=== PATIENT | male | born 1945 | race Caucasian/White ===

== ENCOUNTER 2023-09-17 05:50 | Emergency (ER) | payer MEDICARE, SELFPAY ==
[2023-09-17 05:54] VITALS: BP 152/78
[2023-09-17 06:31] VITALS: BMI 29.1
[2023-09-17 06:49] LABS: % Basophils 0.4 % (0-2); % Eosinophils 1.4 % (0-6); % Immature Granulocytes 0.2 % (0-0.5); % Lymphocytes 13.4 % (20.5-51.1); % Monocytes 8.1 % (1.7-9.3); % Neutrophils 76.5 % (42.2-75.2); Absolute Eosinophils 0.1 10^3/uL (0-0.7); Absolute Lymphocytes 1.3 10^3/uL (1.2-3.4); Absolute Monocytes 0.8 10^3/uL (0.1-0.6); Absolute Neutrophils 7.2 10^3/uL (1.4-6.5); Hemoglobin 13.6 g/dL (13.0-18.0); Mean Corp Hgb Conc. 35.8 g/dL (33.0-37.0); Mean Corpuscular Hgb 30.6 pg (27.0-31.0); Mean Corpuscular Volume 85.6 fL (80.0-94.0); Mean Platelet Volume 8.6 fL (7.4-10.4); Nucleated Red Blood Cells % 0 % (-); Platelet Count 237 10^3/uL (130-400); Red Blood Cell Count 4.44 10^6/uL (4.70-6.10); Red Cell Dist. Width 12.5 % (11.5-14.5); White Blood Cell Count 9.4 10^3/uL (4.8-10.8)
[2023-09-17 07:07] LABS: ALT (SGPT) 22 U/L (0-50); AST (SGOT) 26 U/L (17-59); Albumin 4.1 g/dl (3.5-5.0); Alkaline Phosphatase 98 U/L (38-126); Blood Urea Nitrogen 16 mg/dl (9-20); Calcium 9.4 mg/dl (8.4-10.2); Carbon Dioxide 23 mmol/L (22-30); Chloride 107 mmol/L (98-107); Estimated Creatinine Clearance 71 ml/min; Glucose 162 mg/dl (70-99); Lipase 123 U/L (23-300); Potassium 4.2 mmol/L (3.5-5.1); Sodium 138 mmol/L (135-145); Total Bilirubin 0.8 mg/dl (0.2-1.3); Total Protein 6.6 g/dl (6.3-8.2); eGFR > 60.00
[2023-09-17 07:09] VITALS: BP 120/65
--- NOTE | 2023-09-17 07:27 | ED.GENMED ---
History of Present Illness
General
Chief Complaint: Flank Pain
Source: patient
Exam Limitations: none
Time Seen by Provider: 09/17/23 07:18
Travel History
Have you had any contact with someone who has COVID-19?: No
Do you have any symptoms of coronavirus? Fever > 100 degrees, chills, cough, shortness of breath, sore throat, loss of taste or smell, muscle aches, or headache?: No
History of Present Illness
History of Present Illness:
78-year-old male with history [id number] diabetes and hypertension presents complaining of onset of flank pain that radiates to the testicle that woke him up from earlier this morning. He was nauseous. The pain is since subsided. He
does have a history of kidney stones. No prior abdominal surgical history. No fevers. No other complaints at this time
Past History
Past History
ED Past Medical History: Arrthythmia, Hypercholesterolemia, Other (LBBB) and Other (Recurrent left leg cellulitis, kidney stones)
ED Past Surgical History: Cardiac (defibrilator 2008, cath 2012-negative)
Social History
Tobacco: Non-smoker
Alcohol: Occasional
Personal:
Living: with family
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
Family History
Family History: Other (Noncontributory)
Phy Exam
Physical Exam
Physical Exam:
General: Well-appearing male no acute respiratory distress
HEENT: Normocephalic atraumatic neck is supple
Heart: Regular rate and rhythm no murmurs
Lungs: Clear to auscultation bilaterally no wheezing
Abdomen: Soft nontender nondistended no guarding rebound normal bowel sounds
Extremities: No cyanosis or edema
Course
Orders/Labs/Results
Orders:
Orders
09/17/23 06:24
IV Insert/Care/Rem.- Treatment PRN
09/17/23 06:31
Complete Blood Count/With Diff Urgent
Comprehensive Metabolic Panel Urgent
Lipase Urgent
09/17/23 07:25
CT Abd/pel Without Iv Or Oral Urgent
Comment:
Reason For Exam: left flank pain
09/17/23 08:10
Urinalysis Reflex To Culture Urgent
Date Specimen was Collected: 09/17/23
Time Specimen was Collected: 06:24
Urine Microscopic Reflex Cult Urgent
Abnormal Lab Results
09/17/23 09/17/23
06:31 08:10
RBC 4.44 L 10^6/uL
(4.70-6.10)
Hct 38.0 L %
(39.0-52.0)
Absolute Neuts (auto) 7.2 H 10^3/uL
(1.4-6.5)
Absolute Monos (auto) 0.8 H 10^3/uL
(0.1-0.6)
Neutrophils % 76.5 H %
(42.2-75.2)
Lymphocytes % 13.4 L %
(20.5-51.1)
Glucose 162 H mg/dl
(70-99)
Ur Occult Blood Reflex 4+ A
(Negative)
Urine RBC 26-30 A /HPF
(0-2)
Urine Bacteria (Reflex) Few A
(Negative)
09/17/23 06:31
09/17/23 06:31
Vital Signs
Initial and Last Documented VS:
Initial Vital Signs
Temp Pulse Resp BP Pulse Ox
97.4 F 82 22 152/78 99
09/17/23 05:54 09/17/23 05:54 09/17/23 05:54 09/17/23 05:54 09/17/23 05:54
Last Documented Vital Signs
Temp Pulse Resp BP Pulse Ox
97.4 F 81 16 138/66 96
09/17/23 05:54 09/17/23 08:12 09/17/23 08:12 09/17/23 09:00 09/17/23 09:00
MDM/Problems Addressed
Differential Diagnosis Includes:
Left flank pain. Somali could include renal colic versus diverticulitis versus musculoskeletal flank pain. Very unlikely to be dissection.
Urinalysis pending labs pending. Will check CT of the abdomen.
*Critical Care Note
Total Time (30-74mins, 75-104mins- exclusive of procedures): Not Applicable
Update Note
Update Note:
CT shows evidence of a recently passed kidney stone on the left. Patient reexamined and states his pain is gone appearing comfortable with stable vital signs. No evidence of infection in the urine. I believe he did recently passed a stone no
indication for any further intervention at this point. Stable for the
ED Attending Note
-
Portions of this chart may have been created with voice recognition software.� Occasional wrong word or��sound alike� substitutions may have occurred due to the inherent limitations of voice recognition software.
Discharge Plan
Departure
Patient Disposition: Home (Routine Discharge)
Date of Disposition: 09/17/23
Time of Disposition: 09:23
Patient with high blood pressure during this ER visit?: No
Discharge Problem:
Kidney stone
Instructions: Kidney Stones (DC)
Prescriptions:
No Action
atorvastatin 40 MG tablet
40 mg PO QPM
carvedilol 12.5 MG tablet
12.5 mg PO BID
lisinopril 10 MG tablet
10 mg PO DAILY Qty: 30 0RF
metformin 500 mg Tablet
500 mg PO DAILY
Referrals:
Richard Joseph DO [Family Provider] -
Activity Restrictions/Additional Instructions:
Continue drinking plenty of fluids. You may use ibuprofen if needed for residual pain however looks like you recently passed the stone. Please return here if needed otherwise
Interventions
Interventions:
*Risk Screen - Suicide Last Done: 09/17/23 05:54
*General Assessment Last Done: 09/17/23 06:31
*Neglect/Abuse Screening Last Done: 09/17/23 05:54
ED- Fall Risk Assessment Last Done: 09/17/23 06:31
*ED COVID-19 Vaccine History Last Done: 09/17/23 06:31
FS-Mdbttf-Agnajwyrvx Assessment Last Done: 09/17/23 07:10
ED-Male Genitourinary Assessment Last Done: 09/17/23 07:10
[2023-09-17 08:12] VITALS: BP 134/54
[2023-09-17 08:29] LABS: Urine Albumin Trace (Neg - Trace); Urine Bilirubin Negative (Negative); Urine Character Clear (Clear); Urine Color Yellow; Urine Glucose Negative (Negative); Urine Ketone Negative (Negative); Urine Leukocyte Negative (Negative); Urine Nitrite Negative (Negative); Urine Occult Blood 4+ (Negative); Urine Specific Gravity 1.015 (<1.030); Urine Urobilinogen Negative (Neg - 1+)
[2023-09-17 08:44] LABS: Urine Bacteria Few (Negative); Urine Red Blood Cell 26-30 /HPF (0-2); Urine White Cell 0-2 /HPF (0-5)
[2023-09-17 09:00] VITALS: BP 138/66
== END 2023-09-17 09:30 | disposition home or self-care (01) ==
LOC: EMR 05:50
PROVIDERS: EMERGENCY PHYSICIAN Emergency Medicine; FAMILY PHYSICIAN Family Medicine
DX: N20.0 Calculus of kidney (principal); Z87.442 Personal history of urinary calculi; E78.00 Pure hypercholesterolemia, unspecified; I44.7 Left bundle-branch block, unspecified; E11.9 Type 2 diabetes mellitus without complications; I10 Essential (primary) hypertension; Z79.84 Long term (current) use of oral hypoglycemic drugs
CPT/HCPCS: 99284; 74176; 80053; 81003; 81015; 83690; 85025

== ENCOUNTER → 2024-01-17 11:22 | Outpatient (REF) | payer MEDICARE, SELFPAY | LOC: HWRAD 11:22 | PROVIDERS: ATTENDING PHYSICIAN Urology; FAMILY PHYSICIAN Family Medicine | DX: N20.0 Calculus of kidney (principal) | CPT/HCPCS: 76775 ==

== ENCOUNTER 2024-06-30 08:35 | Emergency (ER) | payer MEDICARE, SELFPAY ==
[2024-06-30 08:47] VITALS: BP 162/80
--- NOTE | 2024-06-30 08:52 | ED.GENMED ---
ED Provider Triage
<Rachell Salcedo PA-C - Last Filed: 06/30/24 08:55>
-
Patient seen by provider in Triage?: Seen in Triage
Attestation: A medical screening examination has been initiated by a qualified medical provider. Based on the assessment performed at this time, it has been determined that an emergent medical condition may exist and the patient has been informed
that further medical evaluation and possible additional diagnostic testing may be needed.
HPI: 78yoM here with R flank pain that woke him up at 4am. +Nausea. Urinated a small amount this morning. Hx of kidney stones and this feels the same.
GENERAL: Alert , in no apparent distress
EYE: No visual abnormalities.
NECK: Trachea midline
ENT: No visible abnormalities.
LUNGS: No acute respiratory distress
NEUROLOGICAL: Alert and oriented
SKIN: Skin intact. No visible changes.
MUSCULOSKELETAL: Moving extremities normally
PSYCH: Normal and appropriate interaction.
This is a medical evaluation conducted in person to initiate diagnostic evaluation and provide initial therapeutics. Please see further documentation by the treating clinician.
CBC, CMP, UA, and CT abdomen without contrast ordered. Percocet and Zofran ordered for symptoms.
History of Present Illness
<Rachell Salcedo PA-C - Last Filed: 06/30/24 08:55>
General
Chief Complaint: Flank Pain
Time Seen by Provider: 06/30/24 10:36
<Zach Sidhu PA-C - Last Filed: 06/30/24 10:56>
General
Source: patient
History of Present Illness
History of Present Illness:
Triage note reviewed. 78-year-old male sudden onset right flank pain with nausea at 4 AM this morning. History of kidney stones. He had 1 episode of vomiting. No fevers. He is followed by urology. He is never needed a procedure for his kidney
stones. He was given Zofran and Percocet while in the waiting room and his pain is improved
Past History
<Rachell Salcedo PA-C - Last Filed: 06/30/24 08:55>
Past History
ED Past Medical History: Arrthythmia, Hypercholesterolemia, Other (LBBB) and Other (Recurrent left leg cellulitis, kidney stones)
ED Past Surgical History: Cardiac (defibrilator 2008, cath 2012-negative)
Social History
Tobacco: Non-smoker
Alcohol: Occasional
Personal:
Living: with family
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
Family History
Family History: Other (Noncontributory)
Phy Exam
<Zach Sidhu PA-C - Last Filed: 06/30/24 10:56>
Physical Exam
Physical Exam:
General: Well-appearing male no acute respiratory distress
HEENT: Normocephalic atraumatic
Heart: Regular rate and rhythm no murmurs
Lungs: Clear no wheeze
Musculoskeletal exam: Spine is nontender
Abdomen soft no significant CVA tenderness
Course
<Rachell Salcedo PA-C - Last Filed: 06/30/24 08:55>
Orders/Labs/Results
Orders:
Orders
06/30/24 08:52
Oxycodone/Acetaminophen [Percocet 5/325] 1 tablet PO NOW STA
06/30/24 08:53
CT Abd/pel Without Iv Or Oral Urgent
Comment:
Reason For Exam: R flank pain
Ondansetron Orally Disint [Zofran Odt (Orally Disintegrating)] 4 mg .ROUTE .STK-MED ONE
06/30/24 08:54
Ondansetron Orally Disint [Zofran Odt (Orally Disintegrating)] 4 mg PO NOW STA
06/30/24 09:02
Complete Blood Count/With Diff Urgent
Comprehensive Metabolic Panel Urgent
Urinalysis Reflex To Culture Urgent
Date Specimen was Collected: 06/30/24
Time Specimen was Collected: 08:56
Urine Microscopic Reflex Cult Urgent
06/30/24 10:49
Ketorolac [Toradol] 30 mg IM NOW STA
Abnormal Lab Results
06/30/24
09:02
WBC 12.6 H 10^3/uL
(4.8-10.8)
MCH 31.1 H pg
(27.0-31.0)
Abs Immat Gran (auto) 0.1 H 10^3/uL
(0-0.05)
Absolute Neuts (auto) 9.9 H 10^3/uL
(1.4-6.5)
Absolute Monos (auto) 1.2 H 10^3/uL
(0.1-0.6)
Neutrophils % 78.2 H %
(42.2-75.2)
Lymphocytes % 10.2 L %
(20.5-51.1)
BUN 22 H mg/dl
(9-20)
Glucose 158 H mg/dl
(70-99)
Calcium 10.4 H mg/dl
(8.4-10.2)
Ur Occult Blood Reflex 4+ A
(Negative)
Urine RBC 26-30 A /HPF
(0-2)
Urine Bacteria (Reflex) Few A
(Negative)
06/30/24 09:02
06/30/24 09:02
Vital Signs
Initial and Last Documented VS:
Initial Vital Signs
Temp Pulse Resp BP Pulse Ox
98.1 F 77 16 162/80 99
06/30/24 08:47 06/30/24 08:47 06/30/24 08:47 06/30/24 08:47 06/30/24 08:47
Last Documented Vital Signs
Temp Pulse Resp BP Pulse Ox
98.1 F 77 16 162/80 99
06/30/24 08:47 06/30/24 08:47 06/30/24 08:47 06/30/24 08:47 06/30/24 08:47
<Zach Sidhu PA-C - Last Filed: 06/30/24 10:56>
Orders/Labs/Results
Orders:
Orders
06/30/24 08:52
Oxycodone/Acetaminophen [Percocet 5/325] 1 tablet PO NOW STA
06/30/24 08:53
CT Abd/pel Without Iv Or Oral Urgent
Comment:
Reason For Exam: R flank pain
Ondansetron Orally Disint [Zofran Odt (Orally Disintegrating)] 4 mg .ROUTE .STK-MED ONE
06/30/24 08:54
Ondansetron Orally Disint [Zofran Odt (Orally Disintegrating)] 4 mg PO NOW STA
06/30/24 09:02
Complete Blood Count/With Diff Urgent
Comprehensive Metabolic Panel Urgent
Urinalysis Reflex To Culture Urgent
Date Specimen was Collected: 06/30/24
Time Specimen was Collected: 08:56
Urine Microscopic Reflex Cult Urgent
06/30/24 10:49
Ketorolac [Toradol] 30 mg IM NOW STA
Abnormal Lab Results
06/30/24
09:02
WBC 12.6 H 10^3/uL
(4.8-10.8)
MCH 31.1 H pg
(27.0-31.0)
Abs Immat Gran (auto) 0.1 H 10^3/uL
(0-0.05)
Absolute Neuts (auto) 9.9 H 10^3/uL
(1.4-6.5)
Absolute Monos (auto) 1.2 H 10^3/uL
(0.1-0.6)
Neutrophils % 78.2 H %
(42.2-75.2)
Lymphocytes % 10.2 L %
(20.5-51.1)
BUN 22 H mg/dl
(9-20)
Glucose 158 H mg/dl
(70-99)
Calcium 10.4 H mg/dl
(8.4-10.2)
Ur Occult Blood Reflex 4+ A
(Negative)
Urine RBC 26-30 A /HPF
(0-2)
Urine Bacteria (Reflex) Few A
(Negative)
06/30/24 09:02
06/30/24 09:02
Vital Signs
Initial and Last Documented VS:
Initial Vital Signs
Temp Pulse Resp BP Pulse Ox
98.1 F 77 16 162/80 99
06/30/24 08:47 06/30/24 08:47 06/30/24 08:47 06/30/24 08:47 06/30/24 08:47
Last Documented Vital Signs
Temp Pulse Resp BP Pulse Ox
98.1 F 77 16 162/80 99
06/30/24 08:47 06/30/24 08:47 06/30/24 08:47 06/30/24 08:47 06/30/24 08:47
<Zach Sidhu PA-C - Last Filed: 06/30/24 10:56>
MDM/Problems Addressed
Differential Diagnosis Includes:
Right flank pain. Differential could include renal colic versus musculoskeletal flank pain versus biliary colic. No rash to suggest shingles
Workup initiated through triage included CT of the abdomen, labs. He is [place] ptosis with a white count of 12.6. This is likely reactive to the pain. Urinalysis without sign of infection. CT shows 3 mm stone in the mid ureter. Patient appears
comfortable. Will add Toradol for additional pain relief but is stable for discharge with urology follow-up. Return precautions were given
<Zach Sidhu PA-C - Last Filed: 06/30/24 10:56>
*Critical Care Note
Total Time (30-74mins, 75-104mins- exclusive of procedures): Not Applicable
ED Attending Note
<Rachell Salcedo PA-C - Last Filed: 06/30/24 08:55>
-
Portions of this chart may have been created with voice recognition software.� Occasional wrong word or��sound alike� substitutions may have occurred due to the inherent limitations of voice recognition software.
Discharge Plan
Departure
Patient Disposition: Home (Routine Discharge)
Date of Disposition: 06/30/24
Time of Disposition: 10:52
Patient with high blood pressure during this ER visit?: No
Discharge Problem:
Kidney stone
Instructions: Kidney Stones (DC)
Prescriptions:
New
hydrocodone-acetaminophen 5-325 mg tablet
1 tab PO Q8H PRN (Reason: Pain) Qty: 8 0RF
ondansetron 4 mg tablet,disintegrating
4 mg PO Q8H PRN (Reason: nausea and vomiting) Qty: 10 0RF
tamsulosin [Flomax] 0.4 mg capsule
0.4 mg PO DAILY Qty: 10 0RF
No Action
atorvastatin 40 MG tablet
40 mg PO QPM
carvedilol 12.5 MG tablet
12.5 mg PO BID
lisinopril 10 MG tablet
10 mg PO DAILY Qty: 30 0RF
metformin 500 mg Tablet
500 mg PO DAILY
Activity Restrictions/Additional Instructions:
Drink plenty of fluids. Use pain medicine as needed for severe pain. Use nausea medicine if needed. Use Flomax daily. Strain the urine. Return here if you develop fever increased pain vomiting or other concerning findings. Follow-up with
urology otherwise
Discharge Date and Time
Print Language: DJIBOUTIAN
[2024-06-30] MEDS: ZOFRAN ODT (ORALLY DISINTEGRATING) 4 MG PO (08:55)
[2024-06-30] MEDS: PERCOCET 5/325 1 TABLET PO (08:57)
[2024-06-30 09:11] LABS: % Basophils 0.4 % (0-2); % Eosinophils 1.6 % (0-6); % Immature Granulocytes 0.4 % (0-0.5); % Lymphocytes 10.2 % (20.5-51.1); % Monocytes 9.2 % (1.7-9.3); % Neutrophils 78.2 % (42.2-75.2); Absolute Basophils 0.1 10^3/uL (0-0.2); Absolute Eosinophils 0.2 10^3/uL (0-0.7); Absolute Immature Granulocytes 0.1 10^3/uL (0-0.05); Absolute Lymphocytes 1.3 10^3/uL (1.2-3.4); Absolute Monocytes 1.2 10^3/uL (0.1-0.6); Absolute Neutrophils 9.9 10^3/uL (1.4-6.5); Hematocrit 43.1 % (39.0-52.0); Hemoglobin 15.5 g/dL (13.0-18.0); Mean Corpuscular Hgb 31.1 pg (27.0-31.0); Mean Corpuscular Volume 86.4 fL (80.0-94.0); Mean Platelet Volume 8.6 fL (7.4-10.4); Nucleated Red Blood Cells % 0 % (-); Platelet Count 260 10^3/uL (130-400); Red Blood Cell Count 4.99 10^6/uL (4.70-6.10); Red Cell Dist. Width 12.7 % (11.5-14.5); White Blood Cell Count 12.6 10^3/uL (4.8-10.8)
[2024-06-30 09:12] LABS: Urine Albumin Trace (Neg - Trace); Urine Bilirubin Negative (Negative); Urine Character Clear (Clear); Urine Color Yellow; Urine Glucose Negative (Negative); Urine Ketone Negative (Negative); Urine Leukocyte Negative (Negative); Urine Nitrite Negative (Negative); Urine Occult Blood 4+ (Negative); Urine Specific Gravity 1.025 (<1.030); Urine Urobilinogen Negative (Neg - 1+)
[2024-06-30 09:24] LABS: ALT (SGPT) 29 U/L (0-50); AST (SGOT) 29 U/L (17-59); Alkaline Phosphatase 95 U/L (38-126); Blood Urea Nitrogen 22 mg/dl (9-20); Calcium 10.4 mg/dl (8.4-10.2); Carbon Dioxide 24 mmol/L (22-30); Chloride 105 mmol/L (98-107); Glucose 158 mg/dl (70-99); Potassium 4.8 mmol/L (3.5-5.1); Sodium 142 mmol/L (135-145); Total Bilirubin 0.8 mg/dl (0.2-1.3); Total Protein 7.7 g/dl (6.3-8.2); eGFR > 60.00
[2024-06-30 09:49] LABS: Urine Bacteria Few (Negative); Urine Red Blood Cell 26-30 /HPF (0-2); Urine White Cell 0-2 /HPF (0-5)
[2024-06-30] MEDS: TORADOL 30 MG IM (11:01)
== END 2024-06-30 11:01 | disposition home or self-care (01) ==
LOC: EMR 08:35
PROVIDERS: Physician Assistant; EMERGENCY PHYSICIAN Emergency Medicine; FAMILY PHYSICIAN Family Medicine
DX: N20.2 Calculus of kidney with calculus of ureter (principal); E78.00 Pure hypercholesterolemia, unspecified
CPT/HCPCS: 96372; 99284; 74176; 80053; 81003; 81015; 85025

== ENCOUNTER → 2024-10-21 09:27 | Outpatient (REF) | payer MEDICARE, SELFPAY | LOC: HWRAD 09:27 | PROVIDERS: ATTENDING PHYSICIAN Urology; FAMILY PHYSICIAN Family Medicine | DX: N20.0 Calculus of kidney (principal) | CPT/HCPCS: 76775 ==